=== PATIENT | female | born 1985 | race Caucasian/White ===

== ENCOUNTER 2021-11-17 14:54 | Inpatient (IN) | payer OTHER ==
[2021-11-17 18:01] VITALS: BMI 28.8
[2021-11-17] MEDS ORDERED: cloNIDine HCL 0.1 MG TABLET PO PRN (19:00)
[2021-11-17] MEDS ORDERED: MENTHOL/PHENOL 1 EACH UD MM PRN (19:19)
[2021-11-17] MEDS ORDERED: ACETAMINOPHEN 325 MG TABLET (FP) PO PRN ×2 (19:19)
[2021-11-17] MEDS ORDERED: IBUPROFEN 400 MG TABLET (FP) PO PRN (19:19)
[2021-11-17] MEDS ORDERED: MAGNESIUM CITRATE 300 ML BOTTLE PO PRN (19:19)
[2021-11-17] MEDS ORDERED: MAG HYDROX/AL HYDROX/SIMETH 30 ML UNIT-DOSE CUP PO PRN (19:19)
[2021-11-17] MEDS ORDERED: METHOCARBAMOL 500 MG TABLET PO PRN (19:19)
[2021-11-17] MEDS ORDERED: MAGNESIUM HYDROX 2400MG/30ML ORAL SUSPENSION 30 ML CUP PO PRN (19:19)
[2021-11-17] MEDS ORDERED: BISMUTH SUBSALICYLATE 524 MG/30 ML PO PRN (19:19)
[2021-11-17] MEDS ORDERED: diazePAM 5 MG TABLET PO PRN (19:48)
[2021-11-17] MEDS ORDERED: methaDONE HCL 10 MG TABLET (FOR DETOX USE ONLY) PO ONE (20:00)
[2021-11-17] MEDS: NICOTINE POLACRILEX 2 MG GUM BUC PRN ×2 (20:21→22:21)
[2021-11-17] MEDS ORDERED: TOPIRAMATE 100 MG TABLET PO SCH (22:00)
[2021-11-17] MEDS ORDERED: MELATONIN 5 MG TABLETS PO SCH (22:00)
[2021-11-17] MEDS ORDERED: THIAMINE HCL 100 MG TABLET (FP) PO SCH (22:00)
[2021-11-17] MEDS: OXcarbazepine 300 MG TABLET (UD) PO SCH (22:14)
[2021-11-18] MEDS: NICOTINE POLACRILEX 2 MG GUM BUC PRN (02:01)
[2021-11-18] MEDS: OXcarbazepine 300 MG TABLET (UD) PO SCH (06:01)
[2021-11-18 07:33] VITALS: BP 108/60; PULSE 93; TEMP 96.9
[2021-11-18] MEDS ORDERED: LISINOPRIL 20 MG TABLET PO SCH (10:00)
[2021-11-18] MEDS ORDERED: PRENATAL VITAMINS W/ FOLIC ACID TABLET (FP) PO SCH (10:00)
[2021-11-18] MEDS ORDERED: amLODIPine BESYLATE 10 MG TABLET (FP) PO SCH (10:00)
[2021-11-18 10:54] LABS: HEMOGLOBIN 13.7 GM/dL (10.7-15.3); MCH 32.6 pg (25.7-33.7); MCHC 34.3 g/dl (32.0-36.0); MEAN PLT VOLUME 10.4 fl (7.5-11.1); PLATELET COUNT 214 10^3/uL (134-434); RBC 4.21 M/mm3 (3.60-5.2); RDW 14.3 % (11.6-15.6); WHITE BLOOD COUNT 6.2 K/mm3 (4.0-10.0)
[2021-11-18 11:02] LABS: ALBUMIN 3.6 g/dl (3.4-5.0); BLOOD UREA NITROGEN 9.7 mg/dL (7-18); CALCIUM 9.1 mg/dL (8.5-10.1)
[2021-11-18 11:05] LABS: CREATININE 0.8 mg/dL (0.55-1.3)
[2021-11-18 11:07] LABS: BILIRUBIN,TOTAL 0.4 mg/dL (0.2-1); TOT PROT 6.7 g/dl (6.4-8.2)
[2021-11-19] MEDS ORDERED: methaDONE HCL 10 MG TABLET (FOR DETOX USE ONLY) PO ONE (10:00)
== END 2021-11-18 09:10 | disposition left against medical advice (07) | DRG 770 ==
LOC: YASAS 14:54 → Y6N 18:57
PROVIDERS: ADMIT Allergy & Immunology; ATTEND Allergy & Immunology
PROC: HZ2ZZZZ Detoxification Services for Substance Abuse Treatment (ICD-10-PCS; principal; 2021-11-17)
DX: F11.23 Opioid dependence with withdrawal (principal); F17.210 Nicotine dependence, cigarettes, uncomplicated; I10 Essential (primary) hypertension; J45.20 Mild intermittent asthma, uncomplicated; J43.9 Emphysema, unspecified; G40.909 Epilepsy, unspecified, not intractable, without status epilepticus; Z86.59 Personal history of other mental and behavioral disorders; Z86.74 Personal history of sudden cardiac arrest
CPT/HCPCS: 36415; 80053; 85027; 86780; 93005; 93010; C9803; J0735; U0003; U0005